=== PATIENT | male | born 1965 | race African-American/Black ===

== ENCOUNTER 2016-11-05 16:29 | Emergency (ER) | payer OTHER ==
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
== END 2016-11-05 17:40 | disposition home or self-care (01) ==
LOC: ER 16:29
DX: S23.3XXA Sprain of ligaments of thoracic spine, initial encounter (principal); G89.29 Other chronic pain; M54.5 Low back pain; I10 Essential (primary) hypertension; F17.200 Nicotine dependence, unspecified, uncomplicated; Z79.899 Other long term (current) drug therapy; V89.2XXA Person injured in unspecified motor-vehicle accident, traffic, initial encounter